=== PATIENT | male | born 1965 | race Two or more races ===

== ENCOUNTER → 2020-09-26 | Outpatient (CLI) | payer BC ==
[~2020-09-26] MED LIST: IBUP200C8 PO
== END | disposition home or self-care (01) ==
LOC: CFH 09:24
PROVIDERS: ATTEND Family Medicine
DX: S09.90XA Unspecified injury of head, initial encounter (principal); M50.321 Other cervical disc degeneration at C4-C5 level; M47.816 Spondylosis without myelopathy or radiculopathy, lumbar region; M51.36 Other intervertebral disc degeneration, lumbar region; M54.89 Other dorsalgia; M25.78 Osteophyte, vertebrae; M48.07 Spinal stenosis, lumbosacral region; M48.02 Spinal stenosis, cervical region; W19.XXXA Unspecified fall, initial encounter; Y93.89 Activity, other specified; Y92.89 Other specified places as the place of occurrence of the external cause; Y99.8 Other external cause status
CPT/HCPCS: 70450; 72050; 72072; 72110